=== PATIENT | male | born 1995 | race African-American/Black ===

== ENCOUNTER 2020-09-15 09:49 | Emergency (ER) | payer MEDICAID ==
[~2020-09-15] VITALS: Ht 180.3 cm; Wt 79.4 kg
[2020-09-15 10:10] VITALS: BP 113/87
[2020-09-15] MEDS ORDERED: ACETAMINOPHEN/CODEINE#3 (300/30mg) TAB PO ONE (10:15)
== END 2020-09-15 11:21 | disposition home or self-care (01) ==
LOC: ER 09:49
DX: M25.461 Effusion, right knee (principal); V29.9XXA Motorcycle rider (driver) (passenger) injured in unspecified traffic accident, initial encounter; Y93.55 Activity, bike riding; Y92.488 Other paved roadways as the place of occurrence of the external cause; Y99.8 Other external cause status
CPT/HCPCS: 29505; 73562